=== PATIENT | male | born 1980 | race American Indian/Alaskan Native ===

== ENCOUNTER 2016-12-12 21:22 | Emergency (ER) | payer OTHER, MEDICAID ==
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
[2016-12-13] MEDS ORDERED: MOTRIN PO ONE (01:13)
[2016-12-13] MEDS ORDERED: TORADOL IM ONE (01:15)
[2016-12-13] MEDS ORDERED: TORADOL ONE (01:27)
[2016-12-13 01:42] VITALS: BP 126/80
== END 2016-12-13 01:42 | disposition home or self-care (01) ==
LOC: ED 21:22
DX: S46.911A Strain of unspecified muscle, fascia and tendon at shoulder and upper arm level, right arm, initial encounter (principal); V89.2XXA Person injured in unspecified motor-vehicle accident, traffic, initial encounter; Y93.89 Activity, other specified; Y99.9 Unspecified external cause status; Y92.410 Unspecified street and highway as the place of occurrence of the external cause
CPT/HCPCS: 70450; 72125; 96372; 99283; J1885

== ENCOUNTER 2018-12-11 09:31 | Emergency (ER) | payer MEDICAID ==
[2018-12-11 09:39] VITALS: BP 108/66
[2018-12-11] MEDS ORDERED: ZOFRAN ODT PO ONE (11:01)
[2018-12-11] MEDS ORDERED: TORADOL IM ONE (11:01)
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
== END 2018-12-11 12:10 | disposition home or self-care (01) ==
LOC: ED 09:31
DX: G43.909 Migraine, unspecified, not intractable, without status migrainosus (principal)
CPT/HCPCS: 99282; J1885; Q0162

== ENCOUNTER 2020-11-15 15:04 | Emergency (ER) | payer MEDICAID, OTHER ==
[2020-11-15 15:36] VITALS: BP 126/84
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
== END 2020-11-15 16:00 | disposition home or self-care (01) ==
LOC: ED 15:04
DX: S09.90XA Unspecified injury of head, initial encounter (principal); M25.561 Pain in right knee; M54.2 Cervicalgia; Z79.899 Other long term (current) drug therapy; V49.49XA Driver injured in collision with other motor vehicles in traffic accident, initial encounter; Y92.410 Unspecified street and highway as the place of occurrence of the external cause; Y93.89 Activity, other specified; Y99.8 Other external cause status
CPT/HCPCS: 70450; 72125

== ENCOUNTER 2021-10-11 13:09 | Outpatient (CLI) | payer MEDICAID ==
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
== END 2021-10-11 13:10 | disposition home or self-care (01) ==
LOC: XRAY 13:09
PROVIDERS: ATTEND Orthopaedic Surgery
DX: M25.521 Pain in right elbow (principal)